=== PATIENT | male | born 1955 | race Caucasian/White ===

== ENCOUNTER 2016-04-03 12:55 | Day surgery (SDC) | payer OTHER ==
[~2016-04-03] VITALS: Ht 170.2 cm; Wt 67.6 kg
[~2016-04-03 12:55] MED LIST: 0.9% Sodium Chloride 1,000 ML IV SCH; ASCO100089 PO; CALCIT PO; CHOL5000 PO; INUL2TAB8 PO; MULT1CAP33 PO; POLY17PO6 PO; PSYL1000 PO; SIMV20TA4 PO; Sodium Chloride LOK Flush 10 mL Syringe IV PRN; fentaNYL-PF 50 mCg/mL 2 mL Inj IVPUSH PRN
[2016-04-03 13:31] VITALS: BP 144/86; PULSE 75; RESP 16; O2SAT 98
[2016-04-03 15:00] VITALS: BP 122/71; PULSE 64; RESP 16; O2SAT 100
[2016-04-03 15:10] VITALS: BP 108/68; PULSE 72; RESP 16; O2SAT 100
[2016-04-03 15:15] VITALS: BP 121/69; PULSE 71; RESP 16; O2SAT 100
--- NOTE | 2016-04-04 01:06 | ENDO ---
[address] [address] ENDOSCOPY PROCEDURE PATIENT: PERLITA MCKEON : 1955 MR#: [id number] ADMIT: 04/03/2016 JOB ID: [id number] DATE OF PROCEDURE: 04/03/2016 PRIMARY PROVIDER: Meena Greenberg DO. PROCEDURE: Colonoscopy. INDICATIONS: A 60-year-old male with a personal history of adenomatous colon polyps, returning for surveillance. EQUIPMENT: [id number]. SEDATION: 1. Versed 5 mg. 2. Fentanyl 125 mcg. COMPLICATIONS: None identified. BOWEL PREPARATION: Fair, adequate exam. PROCEDURE INFORMATION: After the risks and benefits were explained, written and verbal informed consent was obtained. The patient was brought into the endoscopy suite and placed into the left lateral decubitus position. Sedation was achieved using the above-stated medications with the addition of oxygen via nasal cannula. A digital rectal examination was accomplished. Minimal internal hemorrhoids were noted. The scope was introduced into the rectum and advanced under direct visualization to the level of the cecum, as identified by the appendiceal orifice and ileocecal valve. The scope was slowly withdrawn to carefully examine the mucosa for any defects or lesions. Multiple direct views were made through the dentate line for exclusion of pathology. The colon was decompressed. The scope was removed from the patient who tolerated the procedure well. FINDINGS: No significant polyps, mass lesions, or inflammatory features identified throughout. ENDOSCOPIC DIAGNOSES: Visually unremarkable colonoscopy to cecum. RECOMMENDATIONS: Repeat colonoscopy in five years' time considering personal history of colon polyps.
== END 2016-04-03 23:59 | disposition home or self-care (01) ==
LOC: END 12:55
PROVIDERS: ATTEND Internal Medicine Gastroenterology
DX: Z12.11 Encounter for screening for malignant neoplasm of colon (principal); K64.8 Other hemorrhoids; Z86.010 Personal history of colon polyps; K59.00 Constipation, unspecified; I10 Essential (primary) hypertension; E78.5 Hyperlipidemia, unspecified
CPT/HCPCS: 99153; G0105; G0500; J2250; J3010; J7030